=== PATIENT | male | born 1995 | race Caucasian/White ===

== ENCOUNTER 2023-10-27 06:25 | Emergency (ER) | payer SELFPAY ==
[2023-10-27 06:28] VITALS: BP 127/74
--- NOTE | 2023-10-27 07:26 | ED.GENMED ---
History of Present Illness
<Shannan Bruno PA-C - Last Filed: 10/27/23 11:50>
General
Chief Complaint: Chest Problem
Source: patient
Exam Limitations: none
Time Seen by Provider: 10/27/23 07:06
Nursing documentation reviewed up to this point in time: agreed with
Travel History
Have you had any contact with someone who has COVID-19?: No
Do you have any symptoms of coronavirus? Fever > 100 degrees, chills, cough, shortness of breath, sore throat, loss of taste or smell, muscle aches, or headache?: No
History of Present Illness
History of Present Illness:
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
no chronic medical problems
3 weeks of right medial anterior rib pain
works construction, doesn't recall injury; it was very dull and mild initially
went to chiropractor last year for same on the opposite side and a rib was out and he felt better. so he went to the chirpractor 2 weeks ago and had adjustment
didn't feel much better but no worse
last night he went back and got adjustment
he woke up suddenly this am at 5 am with severe pain and sob R side sternoclavicular region. it was severe initially and now is a little more mild
he feels like there is a knife going through his chest
he has not tried anything for pain, denies fever, cough, leg swelling
has h/o of driving long distances, no h/o blood clot.
does not have insurance.
Past History
<Shannan Bruno PA-C - Last Filed: 10/27/23 11:50>
Past History
ED Past Medical History: None
ED Past Surgical History: None
Social History
Tobacco: Smoker
Alcohol: None
Drug: None
Living: with family
Review of Systems
<Shannan Bruno PA-C - Last Filed: 10/27/23 11:50>
Review of Systems
Allergies reviewed?: Yes
All Other Systems: Not applicable
Phy Exam
<Shannan Bruno PA-C - Last Filed: 10/27/23 11:50>
Physical Exam
Physical Exam:
GENERAL: Alert , in no apparent distress
EYE: pupils equal and reactive
NECK: Supple
ENT: o/p clr, mmm.
CARDIAC: Regular rate and rhythm .
chest wall: slightly tender sternorib junction
LUNGS: Clear breath sounds bilaterally, no acute respiratory distress, no wheezes/rales/rhonchi
ABDOMEN: Soft, without focal tenderness, no r/g, no cvat, normal bowel sounds
NEUROLOGICAL: Alert and oriented, no focal neuro deficits
SKIN: Warm and dry, skin intact.
MUSCULOSKELETAL: No edema, well perfused. neg annie's sign
PSYCH: Normal and appropriate interaction.
Course
<Shannan Bruno PA-C - Last Filed: 10/27/23 11:50>
Orders/Labs/Results
Orders:
Orders
10/27/23 07:19
Electrocardiogram (*1) Stat
Reason for Study: Other
Other Reason for Exam: chest pain
Cardiac Monitoring- Treatment ONCE
EKG- Treatment ONCE
CR Ribs-right 2 Vw No Pa Chest Urgent
Reason For Exam: right sided rib pain after chiropractor
10/27/23 07:20
Ketorolac [Toradol] 30 mg IV NOW STA
CR Chest - 2 Views Urgent
Comment:
Reason For Exam: please get lateral
10/27/23 07:35
Troponin I Urgent
10/27/23 07:38
Complete Blood Count/With Diff Urgent
Comprehensive Metabolic Panel Urgent
10/27/23 08:44
CT Chest Pe Study Urgent
Comment:
Reason For Exam: pleuritic pain
Oxycodone/Acetaminophen [Percocet 5/325] 1 tablet PO NOW STA
10/27/23 11:23
Prednisone [Deltasone] 50 mg PO NOW STA
10/27/23 11:24
Incentive Spirometry [Rx Incentive Spirometry] [RESP] Urgent
Frequency: q1h while awake
Abnormal Lab Results
10/27/23
07:38
MCH 32.0 H pg
(27.0-31.0)
Absolute Monos (auto) 0.8 H 10^3/uL
(0.1-0.6)
Lymphocytes % 20.1 L %
(20.5-51.1)
Chloride 110 H mmol/L
(98-107)
Creatinine 0.6 L mg/dL
(0.7-1.3)
10/27/23 07:38
10/27/23 07:38
Vital Signs
Initial and Last Documented VS:
Initial Vital Signs
Temp Pulse Resp BP Pulse Ox
97.9 F 58 22 127/74 99
10/27/23 06:28 10/27/23 06:28 10/27/23 06:28 10/27/23 06:28 10/27/23 06:28
Last Documented Vital Signs
Temp Pulse Resp BP Pulse Ox
97.9 F 45 21 108/66 97
10/27/23 06:28 10/27/23 09:15 10/27/23 09:15 10/27/23 09:00 10/27/23 09:15
<Riky Urrutia DO - Last Filed: 10/27/23 11:07>
Orders/Labs/Results
Orders:
Orders
10/27/23 07:19
Electrocardiogram (*1) Stat
Reason for Study: Other
Other Reason for Exam: chest pain
Cardiac Monitoring- Treatment ONCE
EKG- Treatment ONCE
CR Ribs-right 2 Vw No Pa Chest Urgent
Reason For Exam: right sided rib pain after chiropractor
10/27/23 07:20
Ketorolac [Toradol] 30 mg IV NOW STA
CR Chest - 2 Views Urgent
Comment:
Reason For Exam: please get lateral
10/27/23 07:35
Troponin I Urgent
10/27/23 07:38
Complete Blood Count/With Diff Urgent
Comprehensive Metabolic Panel Urgent
10/27/23 08:44
CT Chest Pe Study Urgent
Comment:
Reason For Exam: pleuritic pain
Oxycodone/Acetaminophen [Percocet 5/325] 1 tablet PO NOW STA
10/27/23 11:23
Prednisone [Deltasone] 50 mg PO NOW STA
10/27/23 11:24
Incentive Spirometry [Rx Incentive Spirometry] [RESP] Urgent
Frequency: q1h while awake
Abnormal Lab Results
10/27/23
07:38
MCH 32.0 H pg
(27.0-31.0)
Absolute Monos (auto) 0.8 H 10^3/uL
(0.1-0.6)
Lymphocytes % 20.1 L %
(20.5-51.1)
Chloride 110 H mmol/L
(98-107)
Creatinine 0.6 L mg/dL
(0.7-1.3)
10/27/23 07:38
10/27/23 07:38
Vital Signs
Initial and Last Documented VS:
Initial Vital Signs
Temp Pulse Resp BP Pulse Ox
97.9 F 58 22 127/74 99
10/27/23 06:28 10/27/23 06:28 10/27/23 06:28 10/27/23 06:28 10/27/23 06:28
Last Documented Vital Signs
Temp Pulse Resp BP Pulse Ox
97.9 F 45 21 108/66 97
10/27/23 06:28 10/27/23 09:15 10/27/23 09:15 10/27/23 09:00 10/27/23 09:15
<Shannan Bruno PA-C - Last Filed: 10/27/23 11:50>
MDM/Problems Addressed
Differential Diagnosis Includes:
chest wall pain, ptx, PE, pneumonia, rib fracture
MDM/Problems Addressed:
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
works construction
mild dull right sided chest pain near sternum anteriorly x 3 weeks, no injury
worse this mornign suddeny waking him from sleep
went to chiropractor yesterday and had adjustment
no meds taken
uncomfortabe but not hypoxic, tachy, tachypneic
does drive long distances for work sometimes
on exam some mininal end exp wheezing but no rales, breath sounds present both sides
cxr indep reviewed, no PTx and no rib fx identified
felt better after toradol but pain returned
almost like pleurisy as well
percocet helped
CT PE neg for findings
pt d/c with steroids and muscle relaxants
return precautions
free clinic f/u
<Shannan Bruno PA-C - Last Filed: 10/27/23 11:50>
*Critical Care Note
Total Time (30-74mins, 75-104mins- exclusive of procedures): Not Applicable
ED Attending Note
<Shannan Bruno PA-C - Last Filed: 10/27/23 11:50>
-
Portions of this chart may have been created with voice recognition software.� Occasional wrong word or��sound alike� substitutions may have occurred due to the inherent limitations of voice recognition software.
<Riky Urrutia DO - Last Filed: 10/27/23 11:07>
ED Attending Note
Patient seen and examined by attending physician: Yes
I performed the substantive portion of visit, reviewed & personally made and approve the management plan that is documented in note by myself or PRASHANTH.: Yes
ED Attending Note:
Patient is a 28-year-old male who presents with severe chest pain that comes around from his back that started couple weeks ago. Patient went to the chiropractor as he had had this problem before and was manipulated. Patient felt fine for
approximately a week but over the past week it seems to be increasing even though he has been repeatedly yesterday and felt better at that time. Patient does smoke. Patient denies fever chills, cough. Patient does not feel short of breath but
today the pain was so severe he could not move. Patient denies any injury even though he works construction. Patient denies any GI symptoms. Patient denies any leg pain or swelling. On physical exam patient is thin. Heart is regular and lungs
are clear. Chest is minimally tender in the lower right costosternal region. Patient also has tenderness in the paravertebral region of the right rhomboid and inferior to that. Patient's workup is unremarkable. Will start the patient on muscle
relaxant and steroids.
Discharge Plan
Departure
Patient Disposition: Home (Routine Discharge)
Date of Disposition: 10/27/23
Time of Disposition: 10:59
Patient with high blood pressure during this ER visit?: No
Condition: Fair
Discharge Problem:
Musculoskeletal chest pain
Instructions: Chest Pain (DC), Musculoskeletal Pain
Prescriptions:
New
cyclobenzaprine 10 mg Tablet
10 mg PO TIDPRN PRN (Reason: muscle spasm) Qty: 20 0RF
prednisone 20 mg tablet
20 mg PO BID Qty: 14 0RF
No Action
albuterol sulfate [Ventolin HFA] 90 MCG/PUFF HFA aerosol inhaler
1 - 2 puff PUFF PRN PRN (Reason: sob)
Referrals:
NONE,* [Family Provider] -
Stand Alone Forms: Return to Work
Activity Restrictions/Additional Instructions:
No lifting more than 10 pounds for the next 3 days. Plenty of heat and ice to the area. Follow-up with your family doctor/chiropractor and 3 to 4 days.
Interventions
Interventions:
*Risk Screen - Suicide Last Done: 10/27/23 06:28
*General Assessment Last Done: 10/27/23 06:28
ED- Fall Risk Assessment Last Done: 10/27/23 06:28
*ED COVID-19 Vaccine History Last Done: 10/27/23 06:28
*Nursing Disposition Last Done: 10/27/23 11:35
ED- Cardiac Assessment Last Done: 10/27/23 11:32
ED- Pulmonary Assessment Last Done: 10/27/23 11:32
Discharge Date and Time
Discharge Date/Time: 10/27/23 11:36
Print Language: [id number]
[2023-10-27 07:30] VITALS: BP 112/67
[2023-10-27 07:48] LABS: % Basophils 0.7 % (0-2); % Eosinophils 2.7 % (0-6); % Immature Granulocytes 0.5 % (0-0.5); % Lymphocytes 20.1 % (20.5-51.1); % Monocytes 9.3 % (1.7-9.3); % Neutrophils 66.7 % (42.2-75.2); Absolute Basophils 0.1 10^3/uL (0-0.2); Absolute Eosinophils 0.2 10^3/uL (0-0.7); Absolute Lymphocytes 1.8 10^3/uL (1.2-3.4); Absolute Monocytes 0.8 10^3/uL (0.1-0.6); Absolute Neutrophils 5.9 10^3/uL (1.4-6.5); Hematocrit 45.2 % (39.0-52.0); Hemoglobin 15.9 g/dL (13.0-18.0); Mean Corp Hgb Conc. 35.2 g/dL (33.0-37.0); Mean Corpuscular Volume 90.9 fL (80.0-94.0); Mean Platelet Volume 10.1 fL (7.4-10.4); Nucleated Red Blood Cells % 0 % (-); Platelet Count 229 10^3/uL (130-400); Red Blood Cell Count 4.97 10^6/uL (4.70-6.10); Red Cell Dist. Width 12.1 % (11.5-14.5); White Blood Cell Count 8.8 10^3/uL (4.8-10.8)
[2023-10-27] MEDS: TORADOL 30 MG IV (07:50)
[2023-10-27 08:04] VITALS: BP 114/65
[2023-10-27 08:04] LABS: ALT (SGPT) 24 U/L (0-50); AST (SGOT) 30 U/L (17-59); Albumin 4.4 g/dl (3.5-5.0); Alkaline Phosphatase 70 U/L (38-126); Blood Urea Nitrogen 12 mg/dl (9-20); Calcium 9.6 mg/dl (8.4-10.2); Carbon Dioxide 23 mmol/L (22-30); Chloride 110 mmol/L (98-107); Glucose 81 mg/dl (70-99); Potassium 4.6 mmol/L (3.5-5.1); Sodium 140 mmol/L (135-145); Total Bilirubin 0.7 mg/dl (0.2-1.3); Total Protein 6.8 g/dl (6.3-8.2); eGFR > 60.00
[2023-10-27 08:09] VITALS: BMI 25.3
[2023-10-27] MEDS: PERCOCET 5/325 1 TABLET PO (08:58)
[2023-10-27 09:00] VITALS: BP 108/66
[2023-10-27 09:34] LABS: Troponin I < 0.012 ng/ml
[2023-10-27] MEDS: DELTASONE 50 MG PO (11:25)
== END 2023-10-27 11:36 | disposition home or self-care (01) ==
LOC: EMR 06:25
PROVIDERS: Physician Assistant; EMERGENCY PHYSICIAN Emergency Medicine
DX: R07.89 Other chest pain (principal); F17.200 Nicotine dependence, unspecified, uncomplicated
CPT/HCPCS: 99285; 96374; 71046; 71100; 71275; 80053; 84484; 85025; 93005; Q9967